=== PATIENT | female | born 1990 | race Caucasian/White ===

== ENCOUNTER 2017-02-11 01:47 | Emergency (ER) | payer MEDICAID, OTHER ==
[2017-02-11 01:54] VITALS: PULSE 96; RESP 16; TEMP 98.2; O2SAT 96
--- NOTE | 2017-02-11 02:08 | EDPHY ---
H & P Stated Complaint: poss infection R eye HPI/ROS: HPI CHIEF COMPLAINT: Facial Cellulitis HISTORY OF PRESENT ILLNESS: This patient 26-year-old female otherwise healthy no significant medical history, presents emergency room as she states she thinks a pupil on the right side of her nose close to the medial canthus of her right eye got infected and swollen. She now presents with pain, redness and swelling to this area. She has loss of the nasal fold. She denies any significant eye pain. However does have pain to the right side of her nose and close to medial canthus of her eye. There is redness and swelling there. No significant fluctuance. Nothing to drain. She does tell me she was able to drain some pus from it. No fever. No headache. No neck pain. Past Medical History: No significant medical history Past Surgical History: No significant surgical history Social History: Denies daily use of drugs alcohol tobacco products Family History: Noncontributory ROS REVIEW OF SYSTEMS: A comprehensive 10 point review of systems is otherwise negative aside from elements mentioned in the history of present illness. Exam Constitutional triage nursing summary reviewed, vital signs reviewed, awake/ alert. Eyes normal conjunctivae and sclera, EOMI, PERRLA. HENT right nasal fold: Medial canthus region there is area of inflammation of redness small 1 cm x 1 cm., tender palpation, no significant pus. Right eye is normal, no injected conjunctiva, extra movements intact, no proptosis, no pus from the medial canthus. normal inspection, atraumatic, moist mucus membranes, no epistaxis, neck supple/ no meningismus, no raccoon eyes. Respiratory clear to auscultation bilaterally, normal breath sounds, no respiratory distress, no wheezing. Cardiovascular rate normal, regular rhythm, no murmur, no edema, distal pulses normal. Gastrointestinal soft, non-tender, no rebound, no guarding, normal bowel sounds, no distension, no pulsatile mass. Genitourinary no CVA tenderness. Musculoskeletal no midline vertebral tenderness, full range of motion, no calf swelling, no tenderness of extremities, no meningismus, good pulses, neurovascularly intact. Skin pink, warm, & dry, no rash, skin atraumatic. Neurologic awake, alert and oriented x 3, AAOx3, moves all 4 extremities equally, motor intact, sensory intact, CN II-XII intact, normal cerebellar, normal vision, normal speech. Psychiatric normal mood/affect. Heme/Lymph/Immune no lymphadenopathy. Differential Diagnosis: Includes but is not limited to in a particular order, facial cellulitis, clogged facial poor, MRSA infection, strep infection, dactylitis Medical Decision Making: Plan for this patient warm compresses 3 to 5 times a day, doxycycline, ophthalmology follow-up. Also strict return precautions understands return emergency room she develops worsening symptoms includes swelling, redness, pain of her face. I did go over that this is in the danger area of her face. Watch closely for worsening signs of infection. She understands. 1st dose of doxycycline given here in emergency room. Source: Patient - Personal History LMP (Females 10-55): 15-21 Days Ago Current Tetanus/Diphtheria Vaccine: Yes Current Tetanus Diphtheria and Acellular Pertussis (TDAP): Yes - Medical/Surgical History Hx Asthma: No Hx Chronic Respiratory Disease: No Hx Diabetes: No Hx Cardiac Disease: No Hx Renal Disease: No Hx Cirrhosis: No Hx Alcoholism: No Hx HIV/AIDS: No Hx Splenectomy or Spleen Trauma: No Other PMH: Dental surgery - Social History Smoking Status: Former smoker Constitutional: Initial Vital Signs Temperature (C) 36.8 C 02/11/17 01:51 Heart Rate 96 02/11/17 01:51 Respiratory Rate 16 02/11/17 01:51 O2 Sat (%) 96 02/11/17 01:51 O2 Delivery Mode Room Air Allergies/Adverse Reactions: No Known Allergies Allergy (Unverified 02/11/17 01:50) Home Medications: Medication Instructions Recorded Microgestin 01/01/16 Doxycycline Hyclate 100 mg PO BID #20 tab 02/11/17 Phetermine 02/11/17 Departure - Departure Disposition: Home, Routine, Self-Care Clinical Impression: Cellulitis Qualifiers: Site of cellulitis: face Qualified Code(s): L03.211 - Cellulitis of face Instructions: Cellulitis (ED) Additional Instructions: 1. Take antibiotic as prescribed. 2. Return emergency room if you have worsening symptoms includes worsening swelling, redness her questions or concerns. Worsening pain. 3. I Do recommend he follow up with Ophthalmology please call their for an appointment. 4. Use warm compresses 3 to 5 times a day for 20 minutes. Referrals: NONE *PRIMARY CARE P,. [Primary Care Provider] - As per Instructions Ian Buck MD [Medical Doctor] - As per Instructions Prescriptions: Doxycycline Hyclate 100 mg PO BID #20 tab
[2017-02-11] MEDS ORDERED: DOXYCYCLINE 100 MG PREPACK#2 BTL TAKEHOME ONE (02:19)
[2017-02-11] MEDS ORDERED: DOXYCYCLINE HYCLATE 100 MG CAP/TAB PO ONE (02:19)
== END 2017-02-11 02:47 | disposition home or self-care (01) ==
DX: L03.211 Cellulitis of face (principal); Z87.891 Personal history of nicotine dependence